=== PATIENT | male | born 1955 | race Caucasian/White ===

== ENCOUNTER → 2020-01-09 | Outpatient (CLI) | payer OTHER ==
--- NOTE | 2020-01-09 15:42 | Diagnostic Imaging Report ---
INDICATION: Lifting injury. EXAMINATION: Left shoulder at 1:43 p.m. Three views were obtained. COMPARISON: There is no prior study available for comparison. FINDINGS: There is no fracture, dislocation or acute bony abnormality evident. There is mild degenerative disease of the glenohumeral joint and moderate degenerative disease of the acromioclavicular joint. The soft tissues are unremarkable. IMPRESSION: 1. There is no evidence for an acute bony abnormality. 2. If there is clinical concern regarding an injury to the labrum or rotator cuff, then MRI would be recommended for further evaluation. Dictated by: Dictated on workstation # [id number]
== END ==
LOC: RAD FS 13:31
PROVIDERS: ATTEND Nurse Practitioner
DX: M25.512 Pain in left shoulder (principal)
CPT/HCPCS: 73030

== ENCOUNTER → 2020-01-21 | Outpatient (CLI) | payer OTHER ==
--- NOTE | 2020-01-21 17:13 | Diagnostic Imaging Report ---
EXAMINATION: Magnetic resonance imaging of the left shoulder without contrast. DATE: January 21, 2020. COMPARISON: Left shoulder radiographs January 09, 2020. HISTORY: 64-year-old male, left shoulder pain. TECHNIQUE: Magnetic Resonance Imaging sequences were performed of the shoulder without contrast. FINDINGS: ROTATOR CUFF, LIGAMENTS, TENDONS, AND MUSCLES: There is a full thickness full width tear of the supraspinatus tendon with tendon retraction near the level of the glenoid measuring approximately 3.7 cm. There is a full thickness full width tear of the subscapularis tendon with tendon retraction near the level of the glenoid. There is infraspinatus tendinopathy. The teres minor tendon is intact. There is severe fatty atrophy of the subscapularis muscle. LONG HEAD OF BICEPS: The long head of biceps tendon is medially dislocated outside of the bicipital groove. The proximal long head of biceps tendon is otherwise intact. GLENOHUMERAL JOINT: The humeral head is well positioned relative to the glenoid. There is a small cleft of fluid signal in the region of the superior labrum on coronal T2 fat saturation sequence image 10. Additional labral evaluation is grossly unremarkable. There is a small subchondral cyst in the superior glenoid and mild degenerative related marrow edema in the posterior superior glenoid. There is no clearly visualized cartilage defect on MRI. There is no glenohumeral joint effusion. There is no identified paralabral cyst. ACROMIOCLAVICULAR JOINT: The acromioclavicular joint is normally aligned. The coracoclavicular and coracoacromial ligaments are intact. There are moderate acromioclavicular degenerative changes with osteophytes extending approximately 2 mm below the expected joint margin. BONE: There is no os acromiale. There is no Hill-Sachs deformity. There is no acute fracture, bone contusion, or evidence of osteonecrosis. BURSAE AND SOFT TISSUES: The bursae and soft tissue surrounding the shoulder are unremarkable. IMPRESSION: 1. Full thickness full width tear of the supraspinatus tendon with tendon retraction near the level of the glenoid. Full-thickness full-width tear of the subscapularis tendon with similar tendon retraction. There is severe fatty atrophy of the subscapularis muscle and no fatty atrophy of the supraspinatus muscle. There is infraspinatus tendinopathy. 2. The long head of biceps tendon is dislocated medially outside of the bicipital groove and is otherwise intact. 3. Moderate acromioclavicular degenerative changes with 2 mm undersurface osteophytes. 4. No acute fracture or bone contusion. 5. Potential small superior labral tear and mild glenohumeral arthritis. No glenohumeral joint effusion. Dictated by: Dictated on workstation # [id number]
== END ==
LOC: RAD 14:57
PROVIDERS: ATTEND Nurse Practitioner
DX: S43.492A Other sprain of left shoulder joint, initial encounter (principal); M19.012 Primary osteoarthritis, left shoulder; M75.122 Complete rotator cuff tear or rupture of left shoulder, not specified as traumatic; M75.42 Impingement syndrome of left shoulder
CPT/HCPCS: 73221

== ENCOUNTER → 2021-10-11 | Outpatient (CLI) | payer MEDICARE ==
[2021-10-11 09:39] VITALS: BP 126/93
== END ==
LOC: CARD 09:00
PROVIDERS: ATTEND Internal Medicine Cardiovascular Disease
DX: I49.9 Cardiac arrhythmia, unspecified (principal); I10 Essential (primary) hypertension; I25.10 Atherosclerotic heart disease of native coronary artery without angina pectoris
CPT/HCPCS: 93225; 93226; 93306; C8930

== ENCOUNTER → 2022-01-14 | Outpatient (CLI) | payer MEDICARE | LOC: CARD 09:07 | PROVIDERS: ATTEND Internal Medicine Cardiovascular Disease | DX: I49.9 Cardiac arrhythmia, unspecified (principal) | CPT/HCPCS: 93225; 93226 ==